=== PATIENT | male | born 1995 | race African-American/Black ===

== ENCOUNTER 2021-04-04 01:09 | Emergency (ER) | payer MEDICARE, OTHER ==
[~2021-04-04] VITALS: Ht 172.7 cm; Wt 63.5 kg
--- NOTE | 2021-04-04 01:17 | NUR ---
PT BROUGHT IN BY RA C/O C/P X5 HOURS MIDSTERNALLY. PT BREATHING EVEN AND UNLABORED SKIN WITHIN NORMAL LIMITS. PLACED ON [employer] ADMINISTRATIVE ASSISTANT AND PULSE OX VSS. WAS AT BEDSIDE FOR EVAL. EKG AT BEDSIDE
[2021-04-04] MEDS ORDERED: IBUPROFEN 200 MG TABLET ONE (01:22)
[2021-04-04] MEDS ORDERED: IBUPROFEN 400 MG TABLET ONE (01:22)
[2021-04-04] MEDS ORDERED: IBUPROFEN 400 MG TABLET PO ONE (01:30)
--- NOTE | 2021-04-04 02:29 | NUR ---
Patient discharged to home in stable condition. Written and verbal after care instructions given. Patient verbalizes understanding of instruction.
[2021-04-04 02:37] VITALS: BP 116/70
== END 2021-04-04 02:37 | disposition home or self-care (01) ==
LOC: ER 01:44
DX: R07.89 Other chest pain (principal); Z59.00 Homelessness unspecified
CPT/HCPCS: 71045-TC